=== PATIENT | female | born 1980 | race Caucasian/White ===

== ENCOUNTER 2021-11-17 17:07 | Observation (INO) ==
--- NOTE | 2021-11-17 18:14 | Emergency Department Note ---
Abdominal Pain HPI General Chief Complaint: Abdominal Pain Stated Complaint: abd pain Time Seen by Provider: 11/17/21 17:08 Source: patient Mode of arrival: ambulatory Limitations: no limitations History of Present Illness HPI Narrative: Narrative: 41-year-old female with a history of gastric ulcer, urinary retention and constipation presents the ER to be evaluated for bright red blood per rectum intermittently for the past few weeks and lower abdominal pain. She states she does not believe she could be . She said every time she makes a bowel movement she has had intermittent blood in the toilet for the past several weeks. She denies lightheadedness, syncope, fever, chills, body aches, nausea, vomiting or abdominal distention. She has had a previous gastric ulcer before. She has been taking super sulfate she had leftover from that but it has not been helping. She denies taking NSAIDs. She has no other complaints at this time. Related Data Previous Rx's Medication Instructions Recorded sucralfate 1 gram tablet (Carafate) 1 g PO QID #40 tabs 04/29/20 diazepam 5 mg tablet (Valium) 5 mg PO BID PRN spasm pain #6 tabs 07/03/21 naproxen 500 mg tablet 500 mg PO BID #14 tabs 07/03/21 sucralfate 1 gram tablet (Carafate) 1 g PO QID #40 tabs 07/03/21 Allergies Allergy/AdvReac Type Severity Reaction Status Date / Time Sulfa (Sulfonamide Allergy Mild RASH AND Verified 11/17/21 17:30 Antibiotics) HIVES [SULFA (SULFONAMIDE ANTIBIOTICS)] Review of Systems ROS ROS Narrative: Narrative: All systems ED: reviewed and negative except as stated. PFSH Narrative Patient History Narrative: Narrative: Medical/Surgical/Family History All Active Problems Urinary retention (Acute) Constipation (Acute) Gastroesophageal reflux disease (Acute) Acute whiplash injury (Acute) Cervical strain (Acute) Intussusception of rectum (Acute) Medical History Constipation Urinary retention Exam Narrative Narrative: Narrative: Gen: No acute distress Eyes: PERRL, no conjunctival injection , and symmetrical lids. Sclerae non icteric HENMT: Normocephalic Atraumatic head, external nose and ears. Moist MM. CVS: +S1/S2, No murmurs or gallops. Radial pulses 2+ and equal bilat. No swelling RESP: Unlabored respiratory effort . Clear to auscultation bilaterally (CTAB). No noted wheezes rales or ronchi. GI: Upper quadrants are soft and nontender, mild tenderness over the lower quadrants without rigidity, rebound tenderness or guarding Rectal: Small external hemorrhoid, no external bleeding or abnormality otherwise, no bright red blood in the rectal vault, Hemoccult positive Skin: Warm, Dry . No rashes or lesions . Cap refill less than 2. Psych: Awake, Alert, & Oriented (AAO) x3. Appropriate mood and affect . General Limitations: no limitations Course Vital Signs Vital signs: Vital Signs Temperature 37.5 C H 11/17/21 17:28 Pulse Rate 82 11/17/21 17:28 Respiratory Rate 16 11/17/21 17:28 Blood Pressure 138/89 11/17/21 17:28 Pulse Oximetry (%) 98 11/17/21 17:28 Oxygen Delivery Method 11/17/21 17:28 Temperature 37.1 C 11/17/21 22:10 Pulse Rate 82 11/17/21 22:10 Respiratory Rate 14 11/17/21 22:10 Blood Pressure 126/86 11/17/21 22:10 Pulse Oximetry (%) 96 11/17/21 22:10 Oxygen Delivery Method 11/17/21 22:10 [facility] MDM Narrative Medical decision making narrative: Narrative: Patient describes intermittent bright red blood per rectum with every bowel movement a past few weeks. She states she has had liquidy stools. She denies dark tarry stools, vomiting, fever, chills, body aches and is afebrile with normal vital signs at this time. She be evaluated with CBC, Chem-8, hepatic panel, lipase and hCG dip, ua. She will be evaluated CT scan of the abdomen pelvis. She is Hemoccult positive. CBC: Unremarkable Chem-8: Unremarkable Hepatic panel: Unremarkable Lipase: Normal hCG dip: Negative UA: No evidence of infection CT abdomen pelvis with contrast:IMPRESSION: 1. Findings consistent with distal sigmoid - rectal intussusception 2. No detectable mass on this examination. This should be evaluated for on follow-up studies 3. Findings consistent with benign hepatic cysts Dr. Garduno was consulted and agreed to come down evaluate the patient Dr. Garduno: Will admit the patient Lab Data Result diagrams: 11/17/21 18:02 Labs: Lab Results 11/17/21 11/17/21 11/17/21 Range/Units 18:02 18:15 18:28 WBC 9.2 (4.5-11.0) K/mcL RBC 4.47 (3.59-5.38) M/mcL Hgb 13.6 (11.2-15.7) g/dL Hct 41.2 (34.1-44.9) % POC Hct 41.0 (36-48) MCV 92.2 (80.0-100.0) fL MCH 30.4 (26.0-34.0) pg MCHC 33.0 (31.0-36.0) g/dL RDW 13.4 (11.5-14.5) % Plt Count 340 (140-440) K/mcL MPV 10.6 H (7.4-10.4) fL Immature Gran % (Auto) 0.2 (0.0-0.5) % Neut % (Auto) 66.0 (38.0-78.0) % Lymph % (Auto) 22.5 (15.5-49.0) % [place] % (Auto) 8.1 (1.0-12.0) % Eos % (Auto) 3.1 (0.0-7.0) % Baso % (Auto) 0.1 (0.0-2.0) % Lymph # (Auto) 2.08 (1.50-4.80) K/mcL [place] # (Auto) 0.75 (0.10-0.90) K/mcL Eos # (Auto) 0.29 (0.00-0.70) K/mcL Baso # (Auto) 0.01 (0.00-0.30) K/mcL Immature Gran # 0.02 (0.00-0.05) K/mcl Absolute Neutrophils 6.08 (1.80-8.00) K/mcL POC Sodium 138 (133-145) POC Potassium 3.5 (3.3-5.1) POC Chloride 105 (96-108) POC Total CO2 24.0 (22-30) POC BUN 7 (6-20) POC Creatinine 0.8 (0.6-1.2) POC Glucose 92 (70-105) POC WB Ioniz Calcium 1.00 L (1.16-1.32) Total Bilirubin 0.3 (0.1-1.0) mg/dL Direct Bilirubin < 0.2 (0-0.3) mg/dL AST 15 (<32) U/L ALT 13 (<40) U/L Alkaline Phosphatase 53 (39-117) U/L Total Protein 6.7 (5.9-8.4) gm/dL Albumin 4.0 (3.2-5.2) gm/dL Globulin 2.7 (2.2-3.7) gm/dL Lipase 19 (7-60) U/L ED POC Tests ED POC Tests: HCG POC Results Negative Discharge Plan Patient/Caregiver Discharge Instructions Pt seen by [facility]RIBUTOR/PA only: Yes Clinical Impression: Intussusception of rectum Patient Disposition: Xfer As Inpt ([facility]) Discharge Date/Time: 11/17/21 21:56 Discharge Location: [facility]
[2021-11-17 18:19] LABS: POC Creatinine 0.8 (0.6-1.2); POC Potassium 3.5 (3.3-5.1)
--- NOTE | 2021-11-17 18:51 | Cat Scan Report ---
INDICATION: Bright Red Blood per rectum/abdominal pain COMPARISON: None. TECHNIQUE: Axial images were obtained through the abdomen and pelvis. Sagittally and coronally reformatted images. 65 mL Isovue 370 injected intravenously. Oral contrast material was not administered FINDINGS: Lung bases:Negative. No pulmonary parenchymal nodule. No pleural fluid or pericardial fluid Liver:Negative. No focal solid intrahepatic mass. No focal abnormality. Liver contour is smooth. No evidence for cirrhosis there are 2 low density lesions within the liver. There is an 18 mm low-density abnormality in the left lobe. There is a 6 mm low-density lesion in the right lobe. These are probably benign cysts Gallbladder, bilary:No calcified gallstones. No gallbladder wall thickening. No dilated intra or extrahepatic bile ducts. Spleen:No splenomegaly. Normal enhancement of splenic and portal veins. Pancreas:No pancreatic mass. No peripancreatic abnormality Adrenal glands:Negative Kidneys,ureters,bladder:No solid renal mass. No hydronephrosis. No obstructing or nonobstructing calculi. No hydroureter. No ureteral calculus. No bladder stone. No detectable bladder mass. Gastrointestinal:Findings consistent with a distal sigmoid colon and rectal intussusception. Intussusceptum measures approximately 5 cm. A definite mass is not identified on this examination but should be considered with post reduction studies. Colon is otherwise negative. There is prominent fecal material within the ascending colon consistent with constipation Negative small bowel. No mechanical small bowel obstruction. No bowel wall thickening. No focal abnormality. Negative stomach and duodenum. No focal abnormality. Appendix: The appendix is negative Vascular:Negative abdominal aorta. Superior mesenteric artery and celiac trunk are normal. Normal opacification of the inferior mesenteric artery Lymphatic:No retroperitoneal or mesenteric adenopathy Mesentery, peritoneum: No free intraperitoneal fluid. No mesenteric or retroperitoneal mass. No intra-abdominal abscess. Reproductive:Uterus is anteflexed. There is an intrauterine contraceptive device present. No adnexal mass Musculoskeletal:No lumbar compression fractures. There is degenerative disc narrowing at L5-S1. Sacrum and pelvis are negative. No hip fracture. No abdominal wall or inguinal hernia IMPRESSION: 1. Findings consistent with distal sigmoid - rectal intussusception 2. No detectable mass on this examination. This should be evaluated for on follow-up studies 3. Findings consistent with benign hepatic cysts The exam was performed using radiation dose optimization techniques including, but not limited to, automated exposure control, adjustment of the mA and/or kV according to patient size and use of iterative reconstruction technique. Interpreted and Authenticated by: Vinicio Blair 11/17/21
[2021-11-17 19:00] LABS: Basophils # (Auto) 0.01 K/mcL (0.00-0.30); Basophils % (Auto) 0.1 % (0.0-2.0); Eosinophils # (Auto) 0.29 K/mcL (0.00-0.70); Eosinophils % (Auto) 3.1 % (0.0-7.0); Hematocrit 41.2 % (34.1-44.9); Hemoglobin 13.6 g/dL (11.2-15.7); Lymphocytes # (Auto) 2.08 K/mcL (1.50-4.80); Lymphocytes % (Auto) 22.5 % (15.5-49.0); Mean Cell Volume 92.2 fL (80.0-100.0); Mean Platelet Volume 10.6 fL (7.4-10.4); Monocytes # (Auto) 0.75 K/mcL (0.10-0.90); Monocytes % (Auto) 8.1 % (1.0-12.0); Platelet Count 340 K/mcL (140-440); RBC 4.47 M/mcL (3.59-5.38); Red Cell Distribution Width 13.4 % (11.5-14.5); WBC 9.2 K/mcL (4.5-11.0)
[2021-11-17 19:26] LABS: ALT/SGPT 13 U/L (<40); AST/SGOT 15 U/L (<32); Alkaline Phosphatase 53 U/L (39-117); Bilirubin,Direct < 0.2 mg/dL (0-0.3); Bilirubin,Total 0.3 mg/dL (0.1-1.0); Globulin 2.7 gm/dL (2.2-3.7)
--- NOTE | 2021-11-17 20:10 | General Surg History&Physical ---
HPI History of Present Illness Patient information: Note initiated : 11/17/21 at 8:07 pm Service Date, if different from initiated Date: [] Patient: Jeanine Tillman a 41 y/o F admitted on for abd pain. Chief Complaint: [] Chief complaint: Abdominal pain History of present illness: Ms. Tillman is a 41 year old F who presents with 2 to 3-week history of intermittent crampy lower abdominal pain with intermittent blood per rectum. Patient admitted to the emergency room where work-up with CT scan is consistent with sigmoid rectal intussusception. There is no obvious lead point, she has no other significant pathology. She has a normal white count and normal H&H. She denies any fevers chills nausea or vomiting. Her only complaints were intermittent crampy abdominal pain. Review of Systems Review of systems: All systems are reviewed, negative other than above PFSH PFSH All Active Problems Urinary retention (Acute) Constipation (Acute) Gastroesophageal reflux disease (Acute) Acute whiplash injury (Acute) Cervical strain (Acute) Intussusception of rectum (Acute) Medical History Constipation Urinary retention MEDS/ALLERGIES Home Medications and Allergies Home Medications Medication Instructions Recorded Confirmed Type sucralfate 1 gram tablet (Carafate) 1 g PO QID #40 tabs 04/29/20 Rx diazepam 5 mg tablet (Valium) 5 mg PO BID PRN spasm pain #6 tabs 07/03/21 Rx naproxen 500 mg tablet 500 mg PO BID #14 tabs 07/03/21 Rx sucralfate 1 gram tablet (Carafate) 1 g PO QID #40 tabs 07/03/21 Rx Allergies Allergy/AdvReac Type Severity Reaction Status Date / Time Sulfa (Sulfonamide Allergy Mild RASH AND Verified 11/17/21 17:30 Antibiotics) HIVES [SULFA (SULFONAMIDE ANTIBIOTICS)] Physical Examination Vital Signs Vital signs: Temp Pulse Resp BP Pulse Ox O2 Del Method 99.5 F H 96 H 16 126/82 94 11/17/21 17:28 11/17/21 18:22 11/17/21 17:28 11/17/21 18:16 11/17/21 18:11/17/21 17:28 General physical appearance General physical exam: well developed, well nourished and no distress Eyes Eye exam: PERRL and normal ocular movement ENT ENT exam: normal pinna, normal nares, normal mucosa, no hearing loss and no congestion Head Head exam IM: Present atraumatic and normocephalic Neck Neck exam: no masses, no bruits, trachea midline, no lymphadenopathy and no venous distension Cardiovascular Cardiovascular exam IM: Present normal rate and rhythm Respiratory Respiratory exam: normal expansion, normal respiratory effort, clear to percussion and clear to auscultation Abdomen Abdomen: Present soft, non tender and bowel sounds Hernia: Present none Genitourinary Genitourinary (Female): Present normal external genitalia Rectum Rectum: Present normal sphincter tone, no hemorrhoids, no tenderness, no masses and no bleeding Integumentary Integumentary: Present no rash, no growths and no abnormal pigmentation Neurologic Neurologic: Present normal coordination and normal sensation Musculoskeletal Musculoskeletal: Present normal gait and normal posture Psychiatric Psychiatric: Present oriented to time, oriented to person, oriented to place, speech is normal and memory intact Results Labs Result diagrams: 11/17/21 18:02 Labs: Abnormal lab results 11/17/21 11/17/21 Range/Units 18:02 18:15 MPV 10.6 H (7.4-10.4) fL POC WB Ioniz Calcium 1.00 L (1.16-1.32) Diabetes panel 11/17/21 Range/Units 18:28 AST 15 (<32) U/L ALT 13 (<40) U/L Alkaline Phosphatase 53 (39-117) U/L Total Protein 6.7 (5.9-8.4) gm/dL Albumin 4.0 (3.2-5.2) gm/dL Calcium panel 11/17/21 Range/Units 18:28 Albumin 4.0 (3.2-5.2) gm/dL Adrenal panel 11/17/21 Range/Units 18:28 Total Bilirubin 0.3 (0.1-1.0) mg/dL AST 15 (<32) U/L ALT 13 (<40) U/L Alkaline Phosphatase 53 (39-117) U/L Total Protein 6.7 (5.9-8.4) gm/dL Albumin 4.0 (3.2-5.2) gm/dL All other labs normal. Imaging CT scan - abdomen: image reviewed A/P Assessment and plan (1) Intussusception of rectum: Plan: This is a pleasant 41-year-old female who presents with crampy abdominal pain with CT scan most consistent with a sigmoid rectal intussusception. Long discussion with patient about treatment options including surgical intervention for a sigmoid resection versus more conservative management with a barium enema to attempt reduction followed by colonoscope. She verbalizes understanding, all of her questions are answered. She desires more conservative intervention. We discussed at length inpatient versus outpatient work-up. Given her crampy abdominal pain, and bleeding per rectum I feel that admission is warranted with immediate work-up to prevent colonic ischemia. Plan: Admit, n.p.o. after midnight. Barium enema in the morning to try to reduce the intussusception, based on the results of that study we will discuss further colonoscopy versus operative intervention. Status: Acute Time Spent With Patient Time: Total time spent is greater than 50% in coordination of care (as documented) at patient's floor/unit and/or counseling patient:
[2021-11-17] MEDS: HYDROmorphone 0.5 MG/0.5 ML SYRINGE IV PRN (20:56)
[2021-11-17] MEDS ORDERED: ACETAMINOPHEN 1,000 MG/100 ML BAG IV ONE (21:01)
[2021-11-17] MEDS ORDERED: DIATRIZOATE MEGLU/DIATRIZO SOD 120 ML BOTTLE PO ONE (21:51)
[2021-11-17] MEDS: LACTATED RINGERS 1,000 ML IV SCH (22:27)
[2021-11-17] MEDS: 0.9 % SODIUM CHLORIDE 10 ML SYRINGE IV SCH (23:21)
[2021-11-18] MEDS: HYDROmorphone 0.5 MG/0.5 ML SYRINGE IV PRN ×5 (03:40→22:10)
[2021-11-18] MEDS: ONDANSETRON 4 MG/2 ML VIAL IV PRN ×4 (03:40→22:10)
[2021-11-18] MEDS: 0.9 % SODIUM CHLORIDE 10 ML SYRINGE IV SCH ×3 (04:54→22:30)
[2021-11-18] MEDS: LACTATED RINGERS 1,000 ML IV SCH ×5 (05:19→23:43)
[2021-11-18] MEDS ORDERED: LORazepam 2 MG/ML VIAL IV ONE (07:12)
--- NOTE | 2021-11-18 09:06 | XRay Report ---
INDICATION: sigmoid-rectal intussuception TECHNIQUE: Enema performed with water-soluble contrast material. COMPARISON: Previous CT scan dated 11/17/2021 FINDINGS: Contrast material initially passes to approximately the rectosigmoid junction. This is a level of obstruction consistent with intussusception. [place] was used and more contrast material was injected. The obstruction gradually released consistent with reduction of intussusception. Contrast material then passed readily into the transverse colon. There is an intraluminal, mucosal mass. This is in the distal sigmoid colon. This measures approximately 4 cm in diameter. Appearance is consistent with primary colonic malignancy. Surgical endoscopic evaluation and biopsy are recommended. IMPRESSION: 1. Distal sigmoid intussusception 2. Hydrostatic reduction of intussusception with resolution of retrograde obstruction 3. 4 cm mucosal mass in the distal sigmoid colon suspicious for neoplasm. Interpreted and Authenticated by: Vinicio Blair 11/18/21
--- NOTE | 2021-11-18 13:00 | General Surgery Progress Note ---
SUBJECTIVE Subjective Patient information: Note initiated : 11/18/21 at 12:58 pm Service Date, if different from initiated Date: [] Patient: Jeanine Tillman 41 y/o F admitted on 11/17/21 for abd pain. Chief Complaint: [] Interval history: Patient admitted overnight with sigmoid rectal intussusception, underwent barium enema today which was successful at reducing the intussusception and also significant for 3 to 4 cm sigmoid mass. Patient has no other complaints. Constitutional Vitals: Vital Signs Temp Pulse Resp BP Pulse Ox O2 Del Method 97.8 F 96 H 12 127/73 92 11/18/21 12:00 11/18/21 12:00 11/18/21 12:00 11/18/21 12:00 11/18/21 12:00 11/18/21 12:00 Period Temp Pulse Resp BP Sys/[place] Pulse Ox O2 Del Method O2 Flow Rate Last 24 Hr 96.9 F-99.5 F 67-96 12-16 99-144/64-99 92-99 Room Air-Room Air Intake and Output 11/17/21 11/18/21 11/18/21 21:59 05:59 13:59 Intake Total 57 200 948 Balance 57 200 948 Weight 141 lb 3.2 oz 141 lb 5 oz Intake & Output: Intake & Output 11/17/21 11/18/21 11/18/21 21:59 05:59 13:59 Intake Total 57 200 948 Balance 57 200 948 Weight 141 lb 3.2 oz 141 lb 5 oz Intake: IV 57 948 Lactated Ringers 1,000 ml @ 125 948 mls/hr IV .Q8H [facility] Rx#: [id number] Oral 200 Other: # Voids 1 General appearance: no acute distress GI/Abdominal GI/Abdominal exam: Present soft; Absent distended, rebound or tenderness A/P Assessment and plan (1) Intussusception of rectum: Plan: Pleasant 41-year-old female scented with colonic intussusception, barium enema reduced the intussusception but is suspicious for 3 to 4 cm sigmoid mass. Long discussion with patient today about work-up, need for colonoscopy tomorrow to identify mass and take biopsies to plan further treatment if necessary. She verbalizes understanding. Plan: Clear liquid diet for now, start GoLytely prep tonight at 1600, colonoscopy tomorrow morning at 630. Status: Acute Time Spent With Patient Time: Total time spent is greater than 50% in coordination of care (as documented) at patient's floor/unit and/or counseling patient:
[2021-11-18] MEDS ORDERED: PEG 3350/NA SULF,BICARB,CL/KCL 4,000 ML ORAL.SOL PO ONE (16:00)
[2021-11-19] MEDS: HYDROmorphone 0.5 MG/0.5 ML SYRINGE IV PRN ×3 (03:04→07:49)
[2021-11-19] MEDS: ONDANSETRON 4 MG/2 ML VIAL IV PRN (05:22)
[2021-11-19] MEDS ORDERED: PROPOFOL 200 MG/20 ML VIAL IV SCH (06:30)
[2021-11-19] MEDS ORDERED: MIDAZOLAM 2 MG/2 ML VIAL IV SCH (06:30)
--- NOTE | 2021-11-19 07:08 | Colonoscopy Procedure Note ---
Colonoscopy Procedure Notes Procedure Information Patient information: Note initiated : 11/19/21 at 7:05 am Patient: Jeanine Tillman 41 y/o F admitted on 11/17/21 for abd pain. Date of Procedure: 11/19/21 Pre-op diagnosis general: Colonic intussusception, sigmoid mass on barium enema Post-op diagnosis: Same Procedure: Colonoscopy with Bx Procedure narrative: After risk benefits and alternatives to the procedure were discussed with the patient at length she verbalized understanding and desire to continue with the procedure. Patient was taken to endoscopy and placed supine on the endoscopy table. Conscious sedation was administered throughout the case consisting of 2 mg of Versed and 300 mcg of propofol. Digital rectal exam was performed which was within normal limits. An adult colonoscope was advanced under direct vision to the cecum which was identified by the [place], the appendiceal orifice and opening to the terminal ileum. Full exam upon removal of scope was significant for a large polypoid mass approximately 3 cm in length occupying approximately half of the lumen at 25 cm and the distal sigmoid colon. Multiple cold forcep biopsies were done for pathology. Ink was placed just distal to the mass. Withdraw time was >8 min. Retroflexion in the rectum was within normal limits. EBL: Minimal Findings: Polypoid appearing mass in the sigmoid colon, too large for endoscopic resection. Biopsies done for pathology Complications: none Surgeon: Toan Garduno Specimens Removed/Pathology: other (Multiple biopsies of sigmoid mass) Disposition: floor Assessment: Sigmoid mass. Follow-up with me in 1 week for pathology results. Image Colon: 1. Large polypoid mass in the sigmoid colon.
[2021-11-19] MEDS: 0.9 % SODIUM CHLORIDE 10 ML SYRINGE IV SCH (08:50)
[2021-11-19] MEDS: LACTATED RINGERS 1,000 ML IV SCH (08:54)
--- NOTE | 2021-11-19 09:11 | Discharge Summary ---
Discharge Provider Provider IMPORTANT FOLLOW-UP INFORMATION FOR PCP: Patient information: Note initiated : 11/19/21 at 9:10 am Service Date, if different from initiated Date: [] Patient: Jeanine Tillman 41 y/o F admitted on 11/17/21 for abd pain. Chief Complaint: [] Date of admission: 11/17/21 21:50 Discharge date: 11/19/21 Primary care physician: PCP No Consults: 11/17/21 Consult to Physician [CONS] Stat Comment: Consulting Provider: Toan Garduno Reason For Exam: Physician to Consult COURSE Hospital Course Hospital course: Patient was admitted with a sigmoid rectal intussusception, this was reduced on barium enema and a sigmoid lesion was identified. Patient underwent a colonoscopy which identified a partially obstructing sigmoid lesion, multiple biopsies were done. Patient will need to follow-up with me next week to discuss biopsy results and plan surgical intervention. Discharge diagnosis: Colonic intussusception Time Spent with Patient Time attestation: Total time spent providing and/or coordinating discharge services: Time spent: Less than 30 minutes Physical Examination Vital Signs Vital signs: Temp Pulse Resp BP Pulse Ox O2 Del Method O2 Flow Rate 99.1 F H 73 18 103/67 90 0 11/19/21 08:00 11/19/21 08:00 11/19/21 08:00 11/19/21 08:00 11/19/21 08:00 11/19/21 07:15 11/18/21 19:35 Discharge Plan Patient/Caregiver Discharge Instructions Activity: increase activity as tolerated Diet: Regular Diet Activity Restrictions/Additional Instructions: Follow-up with me 1 week. Diet and activity as tolerated Prescriptions: No Action No Known Home Meds Follow Up Plan Follow up with: Toan Garduno MD [Physician] - No,PCP [Primary Care Provider] - Patient Disposition: Home, Self-Care Discharge Orders: Discharge Order (Routine); Ordered 11/19/21 Ordered By: Toan Garduno Pending Pending Pending: Resuscitation Status Resuscitate (Full Code) Diet Regular Diet Start MonNov 19 0739 Hydromorphone HCl (Hydromorphone 0.5 Mg/0.5 Ml Syringe) 0.5 mg IV Q2HP PRN; Protocol PRN Reason: Per Pain Protocol Last Admin: 11/19/21 07:49 Dose: 0.5 mg Documented By: Admin: 11/19/21 05:22 Dose: 0.5 mg Documented By: Admin: 11/19/21 03:04 Dose: 0.5 mg Documented By: Admin: 11/18/21 22:10 Dose: 0.5 mg Documented By: Admin: 11/18/21 19:38 Dose: 0.5 mg Documented By: Admin: 11/18/21 15:27 Dose: 0.5 mg Documented By: Admin: 11/18/21 09:11 Dose: 0.5 mg Documented By: Admin: 11/18/21 03:40 Dose: 0.5 mg Documented By: MELISSA Lactated Ringer's (Lactated Ringers) 1,000 mls @ 125 mls/hr IV .Q8H YURI Last Admin: 11/19/21 08:54 Dose: 125 mls/hr Documented By: Infusion: 11/19/21 08:20 Dose: 0 mls/hr Documented By: Admin: 11/18/21 23:43 Dose: 125 mls/hr Documented By: Infusion: 11/18/21 23:39 Dose: 125 mls/hr Documented By: Admin: 11/18/21 15:39 Dose: 125 mls/hr Documented By: Infusion: 11/18/21 14:02 Dose: 125 mls/hr Documented By: Admin: 11/18/21 12:53 Dose: Not Given Documented By: Admin: 11/18/21 06:02 Dose: 125 mls/hr Documented By: Infusion: 11/18/21 06:02 Dose: 125 mls/hr Documented By: Admin: 11/18/21 05:19 Dose: Not Given Documented By: Admin: 11/17/21 22:27 Dose: 125 mls/hr Documented By: MELISSA Midazolam HCl (Midazolam 2 Mg/2 Ml Vial) 0 mg IV ONCE YURI Stop: 11/19/21 14:20 Last Admin: 11/19/21 06:38 Dose: 2 mg Documented By: [email or web address] Ondansetron HCl (Ondansetron 4 Mg/2 Ml Vial) 4 mg IV Q6HP PRN PRN Reason: Nausea And Vomiting Last Admin: 11/19/21 05:22 Dose: 4 mg Documented By: [email or web address] Admin: 11/18/21 22:10 Dose: 4 mg Documented By: Admin: 11/18/21 15:28 Dose: 4 mg Documented By: Admin: 11/18/21 09:16 Dose: 4 mg Documented By: Admin: 11/18/21 03:40 Dose: 4 mg Documented By: MELISSA Propofol (Propofol 200 Mg/20 Ml Vial) 0 mg IV UD [facility] Stop: 11/19/21 14:20 Last Admin: 11/19/21 06:38 Dose: 300 mg Documented By: [email or web address] Sodium Chloride (0.9 % Sodium Chloride 10 Ml Syringe) 10 ml IV Q8 YURI Last Admin: 11/19/21 08:50 Dose: Not Given Documented By: Admin: 11/18/21 22:30 Dose: Not Given Documented By: Admin: 11/18/21 12:53 Dose: Not Given Documented By: Admin: 11/18/21 04:54 Dose: Not Given Documented By: Admin: 11/17/21 23:21 Dose: Not Given Documented By: MELISSA Shift Summary 11/19/21 04:27 Shift Summary by Netta [email or web address], up ad cassidy. NPO as of 00:00. Patient is suppose to get Colonoscopy at 06:30. No order as of 04:31. Completed Golytely at 23:55. Output still brown as of this writing Medicated with Dilaudid 0.5mg IV (Q2HP) at 19:38, 22:18, 03:04 (requests to take zofran with dilaudid when able) Medicated with Zofran 4mg IV (Q6HP) at 22:10 Turns self in bed Last BM 11/19 brown, liquid stool/urine mix Likes Ice water/lemon-saxman soda/newspaper 11/17 21:50 Admitted to [facility] OBS status with diagnosis: Intussusception Primo,Jeanine Hortensia Female : 1980 MedRec# [id number] 11/18/21 16:01 - Shift Summary by Aster Neri RN Acct Num: [id number] : 1980 Patient Age: 41 Primary Diagnosis: Lower abd pain, blood in stool Registration Status: Observation Date of Surgery (if applicable): Colonoscopy at 11/19 Pertinent Medical Dx/Issue(s): Gerd, urinary retention, constipation Med management (antibiotics, diuretics, BP): IV fluid, pain management, antiemetics, golytely Skin/Wound Care: N/A Vital Signs with Trends: VSS O2, liter flow/saturations: RA Pain management (acute vs. chronic): Dilaudid X2, Zofran X2 Lab/Rad (abnormals, trends): barium enema reduced intussusception, colonoscopy 11/19 for mass found Neuro/Mental Status: A&OX4 Cardiac Rhythm, Alarm Settings: N/A Urinary Elimination Device: Hat in bathroom Urinary output greater than 30mL/hr? Unmeasured urine, 550 ml measured Date of last BM: 11/18/21 Lines/Tubes: 20G R A/C , LR at 125ml/hr Activity: SBA due to IV pole Recommendations/questions for MD: Discharge Plan (needs, disposition, etc): TBD Initialized on 11/19/21 04:27 - END OF NOTE
[2021-11-19 09:37] LABS: Carcinoembryonic Antigen 1.8 ng/mL (<3.4)
== END 2021-11-19 11:55 | disposition home or self-care (01) ==
LOC: ED 17:07 → MEDSUR 17:07
PROVIDERS: ADMIT Surgery; ATTEND Surgery

== ENCOUNTER 2021-11-30 09:25 | Inpatient (IN) ==
[2021-11-30] MEDS ORDERED: DIATRIZOATE MEGLU/DIATRIZO SOD 120 ML BOTTLE PO ONE (09:26)
--- NOTE | 2021-11-30 09:43 | Emergency Department Note ---
HPI General Chief complaint: Abdominal Pain Stated complaint: abd. pain Time Seen by Provider: 11/30/21 09:34 Source: patient Mode of arrival: ambulatory Limitations: no limitations History of Present Illness HPI Narrative: Narrative: Patient is a 41-year-old female with recent findings of colonic mass who presents to the emergency department due to abdominal pain. She states that she recently had intussusception, and that at that time this was reduced. She states that they then found a colonic mass, and that Dr. Garduno plans to remove the mass in just over a week. She states that she had significant abdominal pain this morning, so called Dr. Garduno office. They recommended that she come to the emergency department. Dr. Garduno also asked for a call when she arrived to the emergency department. She states that the pain is mostly in the left lower quadrant, but that she does have some pain radiating across to the right. She states that it feels like when she had the intussusception. She denies any other significant concerns. Related Data Home Medications Medication Instructions Recorded Confirmed No Known Home Meds 11/18/21 11/30/21 Allergies Allergy/AdvReac Type Severity Reaction Status Date / Time Sulfa (Sulfonamide Allergy Mild RASH AND Verified 11/22/21 15:35 Antibiotics) HIVES [SULFA (SULFONAMIDE ANTIBIOTICS)] Review of Systems ROS ROS Narrative: Narrative: Constitutional: Denies fever or weakness Eyes: Denies eye pain or vision change ENT ED: Denies throat pain, hearing loss or rhinorrhea Cardiovascular: Denies chest pain, dyspnea on exertion, orthopnea or edema Respiratory: Denies shortness of breath or cough Gastrointestinal: Reports abdominal pain and constipation; Denies nausea, vomiting, diarrhea, hematochezia or melena Musculoskeletal: Denies back pain or myalgia Integumentary: Denies rash or lesions Neurological: Denies headache, weakness, numbness, confusion, abnormal gait or dizziness Psychiatric: Reports as per HPI; Denies anxiety [facility] Narrative Patient History Narrative: Narrative: Medical/Surgical/Family History All Active Problems (Updated 12/01/21 @ 08:50 by Rosalino Gates MD) Abdominal pain (Acute) Colonic mass (Acute) Urinary retention (Acute) Constipation (Acute) Gastroesophageal reflux disease (Acute) Acute whiplash injury (Acute) Cervical strain (Acute) Intussusception of rectum (Acute) Medical History Constipation Urinary retention Surgical History History of colonoscopy 11/19/2021 Family History Grandfather Colon cancer Heart disease Social History Smoking Status: Current every day smoker Alcohol Intake Frequency: holiday/special occasion only Exam Narrative Narrative: Narrative: General Limitations: no limitations General appearance: Present alert and in no apparent distress; Absent anxious or appears intoxicated Head Head: Present atraumatic and normocephalic Eye Eye: Present PERRL and EOMI; Absent scleral icterus or nystagmus ENT ENT: Present mucous membranes moist; Absent nasal congestion Neck Neck: Present full ROM; Absent tenderness Chest Chest: Present normal inspection and symmetric chest wall rise Respiratory Respiratory: Present normal lung sounds bilaterally; Absent respiratory distress or accessory muscle use Cardiovascular Cardiovascular: Present regular rate, normal rhythm and normal heart sounds Adbominal Abdominal: Present soft, tenderness and normal bowel sounds; Absent distention Extremities Extremities: Present normal inspection and full ROM Back Back: Present normal inspection and full ROM Neurological Neurological: Present alert and oriented X3 Psychiatric Psychiatric: Present normal affect and normal mood Skin Skin: Present warm (WNL), dry and normal color Course Vital Signs Vital signs: Vital Signs Temperature 99.0 F 11/30/21 09:27 Pulse Rate 82 11/30/21 09:27 Respiratory Rate 18 11/30/21 09:27 Blood Pressure 129/78 11/30/21 09:27 Pulse Oximetry (%) 100 11/30/21 09:27 Oxygen Delivery Method 11/30/21 09:27 Temperature 98.1 F 12/01/21 08:00 Pulse Rate 81 12/01/21 08:00 Respiratory Rate 18 12/01/21 08:00 Blood Pressure 108/66 12/01/21 08:00 Pulse Oximetry (%) 95 12/01/21 08:00 Oxygen Delivery Method 12/01/21 08:00 [facility] MDM Narrative Medical decision making narrative: Narrative: Patient is a 41-year-old female who presents to the emergency department due to abdominal pain. Blood work has been obtained. Immediately after arrival and evaluation the patient I spoke to Dr. Garduno. He did not recommend any other studies aside from the blood work. He stated that he would be down soon to evaluate patient. Patient has been evaluated by Dr. Garduno. He plans to admit patient and to move up her surgical procedure. Lab Data Result diagrams: 12/01/21 05:35 12/01/21 05:35 Labs: Lab Results 11/30/21 11/30/21 11/30/21 Range/Units 09:43 10:17 10:17 WBC 9.7 (4.5-11.0) K/mcL RBC 4.76 (3.59-5.38) M/mcL Hgb 14.8 (11.2-15.7) g/dL Hct 43.7 (34.1-44.9) % MCV 91.8 (80.0-100.0) fL MCH 31.1 (26.0-34.0) pg MCHC 33.9 (31.0-36.0) g/dL RDW 13.5 (11.5-14.5) % Plt Count 335 (140-440) K/mcL MPV 11.0 H (7.4-10.4) fL Immature Gran % (Auto) 0.3 (0.0-0.5) % Neut % (Auto) 75.1 (38.0-78.0) % Lymph % (Auto) 13.7 L (15.5-49.0) % [place] % (Auto) 9.2 (1.0-12.0) % Eos % (Auto) 1.5 (0.0-7.0) % Baso % (Auto) 0.2 (0.0-2.0) % Lymph # (Auto) 1.33 L (1.50-4.80) K/mcL [place] # (Auto) 0.89 (0.10-0.90) K/mcL Eos # (Auto) 0.15 (0.00-0.70) K/mcL Baso # (Auto) 0.02 (0.00-0.30) K/mcL Immature Gran # 0.03 (0.00-0.05) K/mcl Absolute Neutrophils 7.30 (1.80-8.00) K/mcL PT 12.9 (11.9-14.5) sec INR 0.9 (0.9-1.1) APTT 33.6 (20.0-37.0) sec Sodium 135 (133-145) mmol/L Potassium 3.8 (3.3-5.1) mmol/L Chloride 102 (96-108) mmol/L Carbon Dioxide 24 (22-30) mmol/L Anion Gap 9.0 (8.0-16.0) BUN 7 (6-20) mg/dL Creatinine 0.7 (0.6-1.1) mg/dL GFR Calculation 109 Glucose 87 (70-105) mg/dL Calcium 9.1 (8.6-10.4) mg/dL Total Bilirubin 0.3 (0.1-1.0) mg/dL AST 14 (<32) U/L ALT 13 (<40) U/L Alkaline Phosphatase 57 (39-117) U/L Total Protein 7.2 (5.9-8.4) gm/dL Albumin 4.3 (3.2-5.2) gm/dL Globulin 2.9 (2.2-3.7) gm/dL Albumin/Globulin Ratio 1.5 (1.0-2.3) EKG Data EKG #1: EKG attestation: Yes I reviewed and interpreted this EKG. EKG results narrative: Normal sinus rhythm with a rate of 80, normal axis, AR of 176, QRS of 82, QTc of 434, T wave flattening in lead aVL, and absence of ST elevation or depression. Discharge Plan Patient/Caregiver Discharge Instructions Pt seen by FORGING MACHINE HAND/PA only: No Clinical Impression: Abdominal pain Patient Disposition: Xfer As Inpt ([facility]) Discharge Date/Time: 11/30/21 12:03
[2021-11-30] MEDS ORDERED: LORazepam 1 MG TABLET PO ONE (10:24)
[2021-11-30] MEDS ORDERED: ACETAMINOPHEN 325 MG TABLET PO ONE (10:24)
--- NOTE | 2021-11-30 11:45 | XRay Report ---
HISTORY: Tumor in the sigmoid colon causing intussusception FINDINGS: Balloon tipped catheter was inserted in the rectum. Diluted Gastrografin contrast was injected under fluoroscopic guidance. There is an irregularly shaped tumor in the mid sigmoid colon causing a blockage. With additional fluid inserted, the blockage was partially relieved and contrast flowed beyond the tumor into the distal descending colon. The intussusception is a recurrent finding which was also documented on 11/18/21. One minute eight seconds of fluoroscopy time was used. 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
[2021-11-30 11:50] LABS: Basophils # (Auto) 0.02 K/mcL (0.00-0.30); Basophils % (Auto) 0.2 % (0.0-2.0); Eosinophils # (Auto) 0.15 K/mcL (0.00-0.70); Eosinophils % (Auto) 1.5 % (0.0-7.0); Hematocrit 43.7 % (34.1-44.9); Hemoglobin 14.8 g/dL (11.2-15.7); Lymphocytes # (Auto) 1.33 K/mcL (1.50-4.80); Lymphocytes % (Auto) 13.7 % (15.5-49.0); Mean Cell Volume 91.8 fL (80.0-100.0); Mean Corpuscular HGB Conc 33.9 g/dL (31.0-36.0); Monocytes # (Auto) 0.89 K/mcL (0.10-0.90); Monocytes % (Auto) 9.2 % (1.0-12.0); Neutrophils % (Auto) 75.1 % (38.0-78.0); Platelet Count 335 K/mcL (140-440); RBC 4.76 M/mcL (3.59-5.38); Red Cell Distribution Width 13.5 % (11.5-14.5); WBC 9.7 K/mcL (4.5-11.0)
[2021-11-30 11:51] LABS: INR 0.9 (0.9-1.1); Partial Thromboplastin Time 33.6 sec (20.0-37.0); Prothrombin Time 12.9 sec (11.9-14.5)
[2021-11-30 11:59] LABS: ALT/SGPT 13 U/L (<40); AST/SGOT 14 U/L (<32); Albumin 4.3 gm/dL (3.2-5.2); Albumin/Globulin Ratio 1.5 (1.0-2.3); Alkaline Phosphatase 57 U/L (39-117); Bilirubin,Total 0.3 mg/dL (0.1-1.0); Blood Urea Nitrogen 7 mg/dL (6-20); Calcium 9.1 mg/dL (8.6-10.4); Carbon Dioxide 24 mmol/L (22-30); Chloride 102 mmol/L (96-108); Globulin 2.9 gm/dL (2.2-3.7); Glomerular Filtration Rate 109; Glucose 87 mg/dL (70-105)
--- NOTE | 2021-11-30 17:06 | General Surg History&Physical ---
HPI History of Present Illness Patient information: Note initiated : 11/30/21 at 5:04 pm Service Date, if different from initiated Date: [] Patient: Jeanine Tillman a 41 y/o F admitted on 11/30/21 for abd. pain. Chief Complaint: [] History of present illness: Ms. Tillman is a 41 year old F known to me from prior hospitalization. Patient presented approximately 2 weeks ago with colonic intussusception, work-up was significant for a colonic mass. Intussusception had been reduced therefore patient chose outpatient elective treatment. Yesterday Patient started to have and repeat abdominal pain, and intermittent blood per rectum. She represents to the emergency room for continued management. Review of Systems All systems: reviewed and no additional remarkable complaints except as stated PFSH PFSH All Active Problems Colonic mass (Acute) Urinary retention (Acute) Constipation (Acute) Gastroesophageal reflux disease (Acute) Acute whiplash injury (Acute) Cervical strain (Acute) Intussusception of rectum (Acute) Medical History Constipation Urinary retention Surgical History History of colonoscopy 11/19/2021 Family History Grandfather Colon cancer Heart disease Social History smoking status: Current every day smoker quit status: considering quitting alcohol intake frequency: holiday/special occasion only MEDS/ALLERGIES Home Medications and Allergies Home Medications Medication Instructions Recorded Confirmed Type No Known Home Meds 11/18/21 11/30/21 History Allergies Allergy/AdvReac Type Severity Reaction Status Date / Time Sulfa (Sulfonamide Allergy Mild RASH AND Verified 11/22/21 15:35 Antibiotics) HIVES [SULFA (SULFONAMIDE ANTIBIOTICS)] Physical Examination Vital Signs Vital signs: Temp Pulse Resp BP Pulse Ox O2 Del Method 97.4 F 71 20 102/64 96 11/30/21 16:00 11/30/21 16:00 11/30/21 16:00 11/30/21 16:00 11/30/21 16:00 11/30/21 16:00 General physical appearance General physical exam: well developed, well nourished and no distress Eyes Eye exam: PERRL and normal ocular movement ENT ENT exam: normal pinna, normal nares, normal mucosa, no hearing loss and no congestion Head Head exam IM: Present atraumatic and normocephalic Neck Neck exam: no masses, no bruits, trachea midline, no lymphadenopathy and no v enous distension Cardiovascular Cardiovascular exam IM: Present normal rate and rhythm Respiratory Respiratory exam: normal expansion, normal respiratory effort, clear to percussion and clear to auscultation Abdomen Abdomen: Present soft, non tender and bowel sounds Hernia: Present none Genitourinary Genitourinary (Female): Present normal external genitalia Rectum Rectum: Present normal sphincter tone, no hemorrhoids, no tenderness, no masses and no bleeding Integumentary Integumentary: Present no rash, no growths and no abnormal pigmentation Neurologic Neurologic: Present normal coordination and normal sensation Musculoskeletal Musculoskeletal: Present normal gait and normal posture Psychiatric Psychiatric: Present oriented to time, oriented to person, oriented to place, speech is normal and memory intact Results Labs Result diagrams: 11/30/21 10:17 11/30/21 10:17 Labs: Abnormal lab results 11/30/21 Range/Units 10:17 MPV 11.0 H (7.4-10.4) fL Lymph % (Auto) 13.7 L (15.5-49.0) % Lymph # (Auto) 1.33 L (1.50-4.80) K/mcL Diabetes panel 11/30/21 Range/Units 10:17 Sodium 135 (133-145) mmol/L Potassium 3.8 (3.3-5.1) mmol/L Chloride 102 (96-108) mmol/L Carbon Dioxide 24 (22-30) mmol/L BUN 7 (6-20) mg/dL Creatinine 0.7 (0.6-1.1) mg/dL Glucose 87 (70-105) mg/dL Calcium 9.1 (8.6-10.4) mg/dL AST 14 (<32) U/L ALT 13 (<40) U/L Alkaline Phosphatase 57 (39-117) U/L Total Protein 7.2 (5.9-8.4) gm/dL Albumin 4.3 (3.2-5.2) gm/dL Calcium panel 11/30/21 Range/Units 10:17 Calcium 9.1 (8.6-10.4) mg/dL Albumin 4.3 (3.2-5.2) gm/dL Pituitary panel 11/30/21 Range/Units 10:17 Sodium 135 (133-145) mmol/L Potassium 3.8 (3.3-5.1) mmol/L Chloride 102 (96-108) mmol/L Carbon Dioxide 24 (22-30) mmol/L BUN 7 (6-20) mg/dL Creatinine 0.7 (0.6-1.1) mg/dL Glucose 87 (70-105) mg/dL Calcium 9.1 (8.6-10.4) mg/dL Adrenal panel 11/30/21 Range/Units 10:17 Sodium 135 (133-145) mmol/L Potassium 3.8 (3.3-5.1) mmol/L Chloride 102 (96-108) mmol/L Carbon Dioxide 24 (22-30) mmol/L BUN 7 (6-20) mg/dL Creatinine 0.7 (0.6-1.1) mg/dL Glucose 87 (70-105) mg/dL Calcium 9.1 (8.6-10.4) mg/dL Total Bilirubin 0.3 (0.1-1.0) mg/dL AST 14 (<32) U/L ALT 13 (<40) U/L Alkaline Phosphatase 57 (39-117) U/L Total Protein 7.2 (5.9-8.4) gm/dL Albumin 4.3 (3.2-5.2) gm/dL All other labs normal. A/P Assessment and plan (1) Colonic mass: Plan: Risk, benefits, alternatives to treatment discussed with her at length including details of the procedure and what to expect. She verbalizes understanding, all of her questions are answered and she desires to continue. Plan: Admit to hospital, continue with clear liquid diet today. N.p.o. after midnight for planned robotic sigmoid colectomy tomorrow. Status: Acute Time Spent With Patient Time: Total time spent is greater than 50% in coordination of care (as documented) at patient's floor/unit and/or counseling patient:
[2021-11-30] MEDS: HYDROmorphone 0.5 MG/0.5 ML SYRINGE IV PRN ×2 (17:51→20:49)
[2021-11-30] MEDS: ONDANSETRON 4 MG/2 ML VIAL IV PRN (17:53)
[2021-11-30] MEDS: 0.9 % SODIUM CHLORIDE 10 ML SYRINGE IV SCH ×2 (17:54→20:50)
[2021-11-30] MEDS: ACETAMINOPHEN 325 MG TABLET PO PRN (20:49)
[2021-11-30] MEDS ORDERED: ERTAPENEM 1 GM VIAL IM SCH (21:00)
[2021-12-01] MEDS: HYDROmorphone 0.5 MG/0.5 ML SYRINGE IV PRN ×7 (00:15→22:12)
[2021-12-01] MEDS ORDERED: METOCLOPRAMIDE 10 MG TABLET ONE (00:17)
[2021-12-01] MEDS: ONDANSETRON 4 MG/2 ML VIAL IV PRN ×3 (00:20→23:20)
[2021-12-01] MEDS: 0.9 % SODIUM CHLORIDE 10 ML SYRINGE IV SCH ×2 (05:34→17:42)
[2021-12-01 06:32] LABS: Basophils # (Auto) 0.01 K/mcL (0.00-0.30); Basophils % (Auto) 0.1 % (0.0-2.0); Eosinophils # (Auto) 0.17 K/mcL (0.00-0.70); Eosinophils % (Auto) 2.2 % (0.0-7.0); Hematocrit 42.3 % (34.1-44.9); Hemoglobin 13.8 g/dL (11.2-15.7); Lymphocytes # (Auto) 1.25 K/mcL (1.50-4.80); Mean Cell Volume 93.4 fL (80.0-100.0); Mean Corpuscular HGB Conc 32.6 g/dL (31.0-36.0); Mean Platelet Volume 10.7 fL (7.4-10.4); Monocytes # (Auto) 0.93 K/mcL (0.10-0.90); Monocytes % (Auto) 11.9 % (1.0-12.0); Neutrophils % (Auto) 69.4 % (38.0-78.0); Platelet Count 293 K/mcL (140-440); RBC 4.53 M/mcL (3.59-5.38); Red Cell Distribution Width 13.5 % (11.5-14.5); WBC 7.8 K/mcL (4.5-11.0)
[2021-12-01 06:56] LABS: Blood Urea Nitrogen 6 mg/dL (6-20); Calcium 8.4 mg/dL (8.6-10.4); Carbon Dioxide 27 mmol/L (22-30); Chloride 101 mmol/L (96-108); Glomerular Filtration Rate 92; Glucose 88 mg/dL (70-105)
[2021-12-01] MEDS ORDERED: SCOPOLAMINE 1 PATCH PATCH TOPICAL PRN (11:00)
[2021-12-01] MEDS ORDERED: IPRATROPIUM/ALBUTEROL 3 ML AMPUL.NEB NEB PRN ×2 (11:00→15:41)
[2021-12-01] MEDS ORDERED: ERTAPENEM 1 GM VIAL IM SCH (11:30)
[2021-12-01] MEDS ORDERED: ERTAPENEM 1 GM in 0.9 % SODIUM CHLORIDE 50 ML IV ONE (13:26)
[2021-12-01] MEDS ORDERED: PROPOFOL 200 MG/20 ML VIAL IV ONE (13:28)
[2021-12-01] MEDS ORDERED: MIDAZOLAM 2 MG/2 ML VIAL ONE (13:28)
[2021-12-01] MEDS ORDERED: DEXAMETHASONE 10 MG/ML VIAL ONE (13:28)
[2021-12-01] MEDS ORDERED: GLYCOPYRROLATE 0.2 MG/ML VIAL IV ONE (13:28)
[2021-12-01] MEDS ORDERED: MAGNESIUM SULFATE 2 GM/50 ML BAG IV ONE (13:28)
[2021-12-01] MEDS ORDERED: SUGAMMADEX SODIUM 200 MG/2 ML VIAL IV ONE (13:28)
[2021-12-01] MEDS ORDERED: ONDANSETRON 4 MG/2 ML VIAL ONE (13:28)
[2021-12-01] MEDS ORDERED: ROCURONIUM 10 MG/ML ML IV ONE (13:28)
[2021-12-01] MEDS ORDERED: fentaNYL 250 MCG/5 ML VIAL IV ONE (13:28)
[2021-12-01] MEDS ORDERED: LIDOCAINE HCL/PF 100 MG/5 ML SYRINGE IV ONE (13:28)
[2021-12-01] MEDS ORDERED: ePHEDrine 50 MG/5 ML SYRINGE (ANEST) IV ONE (13:28)
[2021-12-01] MEDS ORDERED: KETAMINE 50 MG/ML Syringe (ANEST) IV ONE (13:28)
[2021-12-01] MEDS ORDERED: diphenhydrAMINE 50 MG/ML VIAL IV PRN (15:41)
[2021-12-01] MEDS ORDERED: NALOXONE HCL 0.4 MG/ML VIAL IV PRN (15:41)
[2021-12-01] MEDS ORDERED: ONDANSETRON 4 MG/2 ML VIAL IV PRN (15:41)
[2021-12-01] MEDS ORDERED: ACETAMINOPHEN 1,000 MG/100 ML BAG IV ONE (15:41)
[2021-12-01] MEDS ORDERED: KETOROLAC 30 MG/ML VIAL IV PRN (15:41)
[2021-12-01] MEDS ORDERED: PROMETHAZINE 25 MG/ML VIAL IV PRN (15:41)
[2021-12-01] MEDS ORDERED: LACTATED RINGERS 250 ML IV PRN (15:41)
[2021-12-01] MEDS ORDERED: MEPERIDINE 25 MG/ML VIAL IV PRN (15:41)
[2021-12-01] MEDS ORDERED: LACTATED RINGERS 1,000 ML IV SCH (15:45)
--- NOTE | 2021-12-01 16:20 | Operative Note ---
Brief Operative Note Date of procedure: 12/01/21 Pre-op diagnosis: Colocolonic intussusception, sigmoid mass Post-op diagnosis: same Procedure: Robotic assisted sigmoid colectomy Grafts/Implants: No Anesthesia: GETA Findings: Mid sigmoid mass consistent with known colonic mass Complications: none Surgeon: Toan Garduno Estimated blood loss (cc): 50 Specimens Removed/Pathology: other (Sigmoid colon, anastomotic donuts) Condition: stable Disposition: PACU Operative Note Operative Note: After all risk benefits and alternatives to the procedure were discussed with the patient at length she verbalized understanding and desire to continue with the procedure. Patient was taken main operating placed upon the operative table. General anesthesia was induced over endotracheal tube. Patient's prepped and draped in standard sterile surgical fashion. After being placed in a modified lithotomy position. Surgical timeout was taken to verify patient and procedure being performed. Postanesthesia induction prior to prepping a OG tube and a Cohen catheter was placed. 1% lidocaine half percent Marcaine was used for local anesthesia throughout the case. Attention was then turned to the right lower quadrant where a 3 cm incision was made carried down through skin subcutaneous tissue. The fascia was opened horizontally and the rectus muscle was split and the peritoneum was entered under direct vision. A wound protector was placed into the abdominal cavity with the cap on top and the abdominal cavity was insufflated with carbon dioxide. Visual inspection revealed no injuries. To 8 mm left upper quadrant trochars and a supraumbilical 8 mm trochars were then placed under direct vision. Patient was placed in a headdown position and abdominal expiration identified the mass at the mid sigmoid position. There was no evidence of intussusception at this time. The da Gavino robot was docked in the standard fashion. Attention was first turned to the blood supply to the sigmoid colon the peritoneum was taken down and the retroperitoneal space was entered and the inferior mesenteric artery and vein were identified. These were transected using vessel sealing device and the retroperitoneal space was dissected with blunt and electrocautery dissection. The mass was identified and transecting the sigmoid at the rectosigmoid junction allowed adequate distal margins therefore at the distal sigmoid colon was cleaned of mesentery and transected with a robotic endostapler without difficulty. The lateral attachments were then taken down to allow full mobilization of the sigmoid colon my proximal transection site was identified greater than 5 cm from the colonic mass. The mesentery was taken down to this point and then firefly cholangiography was used to determine transection point. The colon was then transected with a robotic stapler and the remainder of the lateral attachments and mesentery was taken down with vessel sealing device. The specimen was then placed into the right lower quadrant the lateral attachments along the descending colon and the remainder of the sigmoid colon were then taken down and the proximal sigmoid colon fell into the pelvis without difficulty. EEA sizers were then used to size the rectum she dilated to 33 cm without difficulty therefore choice was made to use a 31 EEA stapler. The anvil of the EEA stapler was placed through the right lower quadrant site, the staple line on the sigmoid colon was removed with EndoShears, this portion was removed from the abdominal cavity and passed off with the specimen. The 31 EEA anvil was then placed into the end of the colon it was sutured in place with a 3-0 PDS pursestring suture. It fit without difficulty. The EEA stapler was then introduced through the rectum it was brought out just below the staple line on the patient's right-hand side of the stapler to ensure a single crossing staple line. The anvil was attached to the stapler and a standard EEA stapled anastomosis was performed. The anastomotic donuts were inspected and 2 complete anastomotic donuts were identified. These were passed off for surgical pathology. A colonoscope was then used to inspect the anastomosis. The anastomosis was airtight and fully patent and hemostatic under direct visualization. The air was suctioned free from the rectum and attention was turned back to the abdominal cavity. The irrigation used for the leak test was suctioned free from the abdominal cavity. The colon was inspected and laid straight, without tension in the pelvis and the anastomosis was grossly intact. The entire abdomen was inspected for hemostasis, the abdomen was hemostatic. Therefore the da Gavino robot was undocked the specimen was grasped through the right lower quadrant incision brought out through the wound protector device and passed off the field for surgical pathology. The CO2 and trochars were removed under direct vision. Trocar sites were inspected for hemostasis. The right lower quadrant fascial defect was closed with a running looped 0 PDS suture. The wound was copiously irrigated and then closed with interrupted 4-0 Monocryl sutures. The remainder of the trocar sites were closed with 4-0 Monocryl sutures and skin glue dressings were applied to each of the incisions. Patient was then awakened from anesthesia transferred postanesthesia care unit awake alert in good condition.
[2021-12-01] MEDS: fentaNYL 100 MCG/2 ML VIAL IV PRN ×4 (16:44→16:57)
[2021-12-01] MEDS: ACETAMINOPHEN 325 MG TABLET PO PRN (22:12)
[2021-12-01] MEDS: oxyCODONE HCL 5 MG TABLET PO PRN (23:20)
[2021-12-02] MEDS: HYDROmorphone 0.5 MG/0.5 ML SYRINGE IV PRN ×7 (00:56→22:59)
[2021-12-02] MEDS: oxyCODONE HCL 5 MG TABLET PO PRN ×5 (03:00→21:03)
[2021-12-02] MEDS: ACETAMINOPHEN 325 MG TABLET PO PRN ×3 (03:47→19:16)
[2021-12-02] MEDS: ONDANSETRON 4 MG/2 ML VIAL IV PRN (05:03)
--- NOTE | 2021-12-02 08:35 | General Surgery Progress Note ---
SUBJECTIVE Subjective Patient information: Note initiated : 12/02/21 at 8:33 am Service Date, if different from initiated Date: [] Patient: Jeanine Tillman 41 y/o F admitted on 11/30/21 for abd. pain. Chief Complaint: [] Interval history: Postop day #1 status post robotic assisted sigmoid colectomy for colon mass. Patient is doing well overnight, ambulated last night. Does not have return of bowel function yet. He has no fevers chills nausea or vomiting. Is tolerating clear liquid diet. Constitutional Vitals: Vital Signs Temp Pulse Resp BP Pulse Ox O2 Del Method O2 Flow Rate 98.6 F 72 16 96/60 92 2 12/02/21 07:51 12/02/21 07:51 12/02/21 07:51 12/02/21 07:51 12/02/21 07:51 12/02/21 07:51 12/01/21 23:43 Period Temp Pulse Resp BP Sys/Lizarraga Pulse Ox O2 Del Method O2 Flow Rate Last 24 Hr 97.1 F-98.9 F 57-98 14-21 90-131/52-82 89-100 Nasal Cannula- Simple Mask 1-6 Intake and Output 12/01/21 12/02/21 12/02/21 21:59 05:59 13:59 Intake Total 2150 787 Output Total 225 925 Balance 1925 -138 Weight 176 lb 6.4 oz Intake & Output: Intake & Output 12/01/21 12/02/21 12/02/21 21:59 05:59 13:59 Intake Total 2150 787 Output Total 225 925 Balance 1925 -138 Weight 176 lb 6.4 oz Intake: IV 150 INVanz 1 GM In Sodium Chloride 50 0.9% 50 ml @ 100 mls/hr IV ONCE ONE Rx#:[id number] Oral 787 IV - Manual Only 1999 Output: Urine Catheter Amount 175 925 Estimated Blood Loss 50 Other: Urine Appearance Clear Clear Uretheral (Cohen) Clear Urine Color Yellow Yellow Pale Pale Uretheral (Cohen) Yellow Pale Urine Odor Normal Normal General appearance: cooperative and no acute distress GI/Abdominal GI/Abdominal exam: Present soft and tenderness; Absent distended Additional comments: Incisions are clean dry and intact A/P Assessment and plan (1) Colonic mass: Plan: Postop day 1 status post robotic assisted sigmoid colectomy. Patient is progressing as expected, will DC Cohen this morning. Continue with clear liquid diet until return of bowel functions. Status: Acute Time Spent With Patient Time: Total time spent is greater than 50% in coordination of care (as documented) at patient's floor/unit and/or counseling patient:
[2021-12-03] MEDS: HYDROmorphone 0.5 MG/0.5 ML SYRINGE IV PRN ×7 (01:15→23:20)
[2021-12-03] MEDS: oxyCODONE HCL 5 MG TABLET PO PRN ×5 (01:57→21:09)
--- NOTE | 2021-12-03 07:42 | EKG ---
[facility] Test Date: 2021-11-30 Pat Name: Jeanine Tillman Department: ED Room: Gender: Female Executive Personal Assistant: SB : 1980 Requested By: Rosalino Gates Order Number: [id number] Reading MD: Vinicio Boyle M.D. Measurements Intervals [place] Rate: 80 P: 67 GA: 176 QRS: 45 QRSD: 82 T: 54 QT: 376 QTc: 434 Interpretive Statements Sinus rhythm Electronically Signed On 12-03-2021 7:41:49 PDT by Vinicio Boyle M.D. /store/[email or web address]/[id number]
[2021-12-03 08:51] LABS: Basophils # (Auto) 0.01 K/mcL (0.00-0.30); Basophils % (Auto) 0.1 % (0.0-2.0); Eosinophils # (Auto) 0.08 K/mcL (0.00-0.70); Eosinophils % (Auto) 0.8 % (0.0-7.0); Hematocrit 35.7 % (34.1-44.9); Hemoglobin 11.5 g/dL (11.2-15.7); Lymphocytes # (Auto) 1.29 K/mcL (1.50-4.80); Lymphocytes % (Auto) 12.7 % (15.5-49.0); Mean Cell Volume 93.2 fL (80.0-100.0); Mean Corpuscular HGB Conc 32.2 g/dL (31.0-36.0); Mean Platelet Volume 11.2 fL (7.4-10.4); Monocytes # (Auto) 1.25 K/mcL (0.10-0.90); Monocytes % (Auto) 12.3 % (1.0-12.0); Neutrophils % (Auto) 73.7 % (38.0-78.0); Platelet Count 250 K/mcL (140-440); RBC 3.83 M/mcL (3.59-5.38); Red Cell Distribution Width 13.5 % (11.5-14.5); WBC 10.2 K/mcL (4.5-11.0)
[2021-12-03 08:57] LABS: Blood Urea Nitrogen 7 mg/dL (6-20); Carbon Dioxide 24 mmol/L (22-30); Chloride 103 mmol/L (96-108); Glomerular Filtration Rate 109; Glucose 90 mg/dL (70-105)
--- NOTE | 2021-12-03 10:51 | General Surgery Progress Note ---
SUBJECTIVE Subjective Patient information: Note initiated : 12/03/21 at 10:49 am Service Date, if different from initiated Date: [] Patient: Jeanine Tillman 41 y/o F admitted on 11/30/21 for abd. pain. Chief Complaint: [] Interval history: Postop day #2 status post robotic assisted sigmoid colectomy. Patient is ambulatory, has minimal pain. She is had no flatus or bowel movement at this time. She is tolerating clear liquid diet with no nausea or emesis. Constitutional Vitals: Vital Signs Temp Pulse Resp BP Pulse Ox O2 Del Method O2 Flow Rate 99.3 F H 77 17 105/66 92 2 12/03/21 07:24 12/03/21 07:24 12/03/21 07:24 12/03/21 07:24 12/03/21 07:24 12/03/21 07:24 12/01/21 23:43 Period Temp Pulse Resp BP Sys/Lizarraga Pulse Ox O2 Del Method O2 Flow Rate Last 24 Hr 97.9 F-99.3 F 74-98 14-20 94-118/59-78 91-94 Room Air-Room Air Intake and Output 12/02/21 12/03/21 12/03/21 21:59 05:59 13:59 Intake Total 920 240 Output Total 700 Balance 220 240 Weight 179 lb 3.2 oz Intake & Output: Intake & Output 12/02/21 12/03/21 12/03/21 21:59 05:59 13:59 Intake Total 920 240 Output Total 700 Balance 220 240 Weight 179 lb 3.2 oz Intake: Oral 920 240 Output: Void Amount 700 Other: Urine Appearance Clear Urine Color Yellow # Voids 2 General appearance: cooperative and no acute distress GI/Abdominal GI/Abdominal exam: Present soft; Absent distended, rebound or tenderness Additional comments: Incisions are clean dry and intact A/P Assessment and plan (1) Colonic mass: Plan: Postop day #2 status post sigmoid colectomy. Awaiting return of bowel function. Continue to encourage ambulation, advance diet to regular. Status: Acute Time Spent With Patient Time: Total time spent is greater than 50% in coordination of care (as documented) at patient's floor/unit and/or counseling patient:
[2021-12-03] MEDS ORDERED: MAGNESIUM HYDROXIDE 30 ML ORAL.SUSP PO PRN (20:08)
[2021-12-03] MEDS: DOCUSATE SODIUM 100 MG CAPSULE PO SCH (21:09)
[2021-12-03] MEDS: SENNOSIDES 1 TABLET PO SCH (21:09)
[2021-12-03] MEDS: ACETAMINOPHEN 325 MG TABLET PO PRN (23:27)
[2021-12-04] MEDS: HYDROmorphone 0.5 MG/0.5 ML SYRINGE IV PRN ×5 (04:04→22:20)
[2021-12-04] MEDS: oxyCODONE HCL 5 MG TABLET PO PRN ×3 (05:58→15:54)
[2021-12-04] MEDS: DOCUSATE SODIUM 100 MG CAPSULE PO SCH ×2 (08:15→21:48)
[2021-12-04] MEDS: ACETAMINOPHEN 325 MG TABLET PO PRN ×2 (09:36→19:25)
--- NOTE | 2021-12-04 09:42 | General Surgery Progress Note ---
SUBJECTIVE Subjective Patient information: Note initiated : 12/04/21 at 9:39 am Service Date, if different from initiated Date: [] Patient: Jeanine Tillman 41 y/o F admitted on 11/30/21 for abd. pain. Chief Complaint: [] Principal diagnosis: Postop day #3 status post robotic assisted sigmoid colectomy for colonic ma Interval history: Overnight took less pain medication, has been ambulatory and had small amount of flatus this morning. No nausea, tolerating minimal amount of regular diet. Constitutional Vitals: Vital Signs Temp Pulse Resp BP Pulse Ox O2 Del Method O2 Flow Rate 98.5 F 83 16 113/75 91 2 12/04/21 08:13 12/04/21 08:13 12/04/21 08:13 12/04/21 08:13 12/04/21 08:13 12/04/21 08:13 12/01/21 23:43 Period Temp Pulse Resp BP Sys/Lizarraga Pulse Ox O2 Del Method O2 Flow Rate Last 24 Hr 97.8 F-100.1 F 74-90 16-20 112-135/69-83 91-93 Room Air-Room Air Intake and Output 12/03/21 12/04/21 12/04/21 21:59 05:59 13:59 Intake Total 1440 750 Balance 1440 750 Weight 177 lb 4.8 oz Intake & Output: Intake & Output 12/03/21 12/04/21 12/04/21 21:59 05:59 13:59 Intake Total 1440 750 Balance 1440 750 Weight 177 lb 4.8 oz Intake: Oral 1440 750 Other: Meal Lunch Percent of Meal Consumed 100% Feeding Ability Independent # Voids 3 General appearance: cooperative and no acute distress GI/Abdominal GI/Abdominal exam: Present soft and tenderness (Decreased appropriate tenderness); Absent distended Additional comments: Incisions are clean dry and intact A/P Assessment and plan (1) Colonic mass: Plan: Progressing as expected. Continue ambulation, continue to wean narcotics. Awaiting full return of bowel function. Status: Acute Time Spent With Patient Time: Total time spent is greater than 50% in coordination of care (as documented) at patient's floor/unit and/or counseling patient:
[2021-12-04] MEDS: ONDANSETRON 4 MG/2 ML VIAL IV PRN (15:51)
[2021-12-04] MEDS: 0.9 % SODIUM CHLORIDE 10 ML SYRINGE IV SCH ×2 (19:48→22:21)
[2021-12-04] MEDS: SENNOSIDES 1 TABLET PO SCH (21:48)
[2021-12-05] MEDS: 0.9 % SODIUM CHLORIDE 10 ML SYRINGE IV SCH ×4 (02:28→20:00)
[2021-12-05] MEDS: HYDROmorphone 0.5 MG/0.5 ML SYRINGE IV PRN ×2 (02:29→19:57)
[2021-12-05] MEDS: ONDANSETRON 4 MG/2 ML VIAL IV PRN ×4 (04:58→23:36)
[2021-12-05] MEDS ORDERED: SCOPOLAMINE 1 PATCH PATCH TOPICAL SCH (08:30)
[2021-12-05] MEDS: oxyCODONE HCL 5 MG TABLET PO PRN ×2 (08:38→23:41)
[2021-12-05] MEDS: DOCUSATE SODIUM 100 MG CAPSULE PO SCH ×2 (08:47→23:41)
--- NOTE | 2021-12-05 09:23 | General Surgery Progress Note ---
SUBJECTIVE Subjective Patient information: Note initiated : 12/05/21 at 9:21 am Service Date, if different from initiated Date: [] Patient: Jeanine Tillman 41 y/o F admitted on 11/30/21 for abd. pain. Chief Complaint: [] Principal diagnosis: POD #4 status post robotic assisted sigmoid colectomy for colonic mass Interval history: Patient continues to be ambulatory overnight, passed a small amount of flatus but no bowel movement at this time. No fevers chills nausea or vomiting. Patient has decreased appetite and is not eating a lot. Constitutional Vitals: Vital Signs Temp Pulse Resp BP Pulse Ox O2 Del Method O2 Flow Rate 97.9 F 74 16 112/77 94 2 12/05/21 06:28 12/05/21 06:28 12/05/21 06:28 12/05/21 06:28 12/05/21 06:28 12/05/21 06:28 12/01/21 23:43 Period Temp Pulse Resp BP Sys/Lizarraga Pulse Ox O2 Del Method O2 Flow Rate Last 24 Hr 97.7 F-99.1 F 64-77 16-16 103-131/61-80 91-96 Room Air-Room Air Intake and Output 12/04/21 12/05/21 12/05/21 21:59 05:59 13:59 Intake Total 700 360 Output Total 700 Balance 700 -340 Weight 142 lb 8 oz Intake & Output: Intake & Output 12/04/21 12/05/21 12/05/21 21:59 05:59 13:59 Intake Total 700 360 Output Total 700 Balance 700 -340 Weight 142 lb 8 oz Intake: Oral 360 GI Tube Flush 700 Output: Void Amount 700 Other: Urine Appearance Clear Clear Urine Color Bright Yellow Bright Yellow Urine Odor Normal Normal # Voids 3 1 General appearance: cooperative and no acute distress GI/Abdominal GI/Abdominal exam: Present normal bowel sounds and soft; Absent distended or tenderness Additional comments: Incisions are clean dry and intact A/P Assessment and plan (1) Colonic mass: Plan: Postop day #4 status post sigmoid colectomy. Awaiting return of bowel function. Continue ambulation, will give gum to chew, will start giving milk of magnesia as patient was on chronic laxatives prior to admission. Status: Acute Time Spent With Patient Time: Total time spent is greater than 50% in coordination of care (as documented) at patient's floor/unit and/or counseling patient:
[2021-12-05] MEDS ORDERED: MAGNESIUM HYDROXIDE 30 ML ORAL.SUSP PO SCH (12:00)
[2021-12-05] MEDS: NYSTATIN 500,000 UNITS/5 ML ORAL.SUSP SSP SCH ×2 (17:20→23:40)
[2021-12-05] MEDS: SENNOSIDES 1 TABLET PO SCH (23:40)
[2021-12-06] MEDS: NYSTATIN 500,000 UNITS/5 ML ORAL.SUSP SSP SCH (05:18)
[2021-12-06] MEDS: ACETAMINOPHEN 325 MG TABLET PO PRN (05:18)
[2021-12-06] MEDS: HYDROmorphone 0.5 MG/0.5 ML SYRINGE IV PRN (05:21)
[2021-12-06] MEDS: 0.9 % SODIUM CHLORIDE 10 ML SYRINGE IV SCH (05:21)
[2021-12-06] MEDS: ONDANSETRON 4 MG/2 ML VIAL IV PRN (05:28)
[2021-12-06] MEDS: oxyCODONE HCL 5 MG TABLET PO PRN (08:55)
[2021-12-06] MEDS: DOCUSATE SODIUM 100 MG CAPSULE PO SCH (08:55)
--- NOTE | 2021-12-06 09:59 | Discharge Summary ---
Discharge Provider Provider IMPORTANT FOLLOW-UP INFORMATION FOR PCP: Patient information: Note initiated : 12/06/21 at 9:58 am Service Date, if different from initiated Date: [] Patient: Jeanine Tillman 41 y/o F admitted on 11/30/21 for abd. pain. Chief Complaint: [] Date of admission: 11/30/21 12:03 Discharge date: 12/06/21 Primary care physician: PCP No Consults: 11/30/21 09:43 Consult to Physician [CONS] Stat Comment: Consulting Provider: Toan Garduon Reason For Exam: Physician to Consult COURSE Hospital Course Hospital course: Patient presented with colocolonic intussusception from a sigmoid mass. She was taken the operating room on hospital day #1 for robotic assisted sigmoid colectomy. Postop day #5 she has had return of bowel function, is ambulatory, tolerating regular diet. Discharge diagnosis: Status post sigmoid collection for colonic mass Time Spent with Patient Time attestation: Total time spent providing and/or coordinating discharge services: Time spent: Less than 30 minutes Physical Examination Vital Signs Vital signs: Temp Pulse Resp BP Pulse Ox O2 Del Method O2 Flow Rate 97.7 F 59 L 16 94/59 94 2 12/06/21 07:34 12/06/21 07:34 12/06/21 07:34 12/06/21 07:34 12/06/21 07:34 12/06/21 07:34 12/01/21 23:43 Discharge Plan Patient/Caregiver Discharge Instructions Activity: increase activity as tolerated Diet: Regular Diet Activity Restrictions/Additional Instructions: Shower as normal. Follow-up with me in 1 week. Activity as tolerated. Prescriptions: New ibuprofen 800 mg tablet 800 mg PO TID PRN (Reason: pain) Qty: 90 0RF acetaminophen [Tylenol 8 Hour] 650 mg tablet extended release 650 mg PO Q8H PRN (Reason: pain) Qty: 90 0RF oxycodone 5 mg tablet 5 mg PO Q6H PRN (Reason: pain) Qty: 5 0RF Follow Up Plan Follow up with: Toan Garduno MD [Physician] - No,PCP [Primary Care Provider] - Patient Disposition: Home, Self-Care Discharge Orders: Discharge Order (Routine); Ordered 12/06/21 Ordered By: Toan Garduno Pending Pending Pending: Resuscitation Status Resuscitate (Full Code) Diet Regular Diet Start Sun Sep 4 1356 Acetaminophen (Acetaminophen 325 Mg Tablet) 650 mg PO Q6HP PRN; Protocol PRN Reason: Per Pain Protocol/Fever > 101 Last Admin: 12/06/21 05:18 Dose: 650 mg Documented By: Admin: 12/04/21 19:25 Dose: 650 mg Documented By: Admin: 12/04/21 09:36 Dose: 650 mg Documented By: Admin: 12/03/21 23:27 Dose: 650 mg Documented By: Admin: 12/02/21 19:16 Dose: 650 mg Documented By: Admin: 12/02/21 11:04 Dose: 650 mg Documented By: Admin: 12/02/21 03:47 Dose: 650 mg Documented By: Admin: 12/01/21 22:12 Dose: 650 mg Documented By: Admin: 11/30/21 20:49 Dose: 650 mg Documented By: CHARMAINE Docusate Sodium (Docusate Sodium 100 Mg Capsule) 100 mg PO BID [facility] Last Admin: 12/06/21 08:55 Dose: 100 mg Documented By: Admin: 12/05/21 23:41 Dose: 100 mg Documented By: Admin: 12/05/21 08:47 Dose: 100 mg Documented By: Admin: 12/04/21 21:48 Dose: 100 mg Documented By: Admin: 12/04/21 08:15 Dose: 100 mg Documented By: Admin: 12/03/21 21:09 Dose: 100 mg Documented By: KENDALL Hydromorphone HCl (Hydromorphone 0.5 Mg/0.5 Ml Syringe) 0.5 mg IV Q2HP PRN; Protocol PRN Reason: Per Pain Protocol Last Admin: 12/06/21 05:21 Dose: 0.5 mg Documented By: Admin: 12/05/21 19:57 Dose: 0.5 mg Documented By: Admin: 12/05/21 02:29 Dose: 0.5 mg Documented By: Admin: 12/04/21 22:20 Dose: 0.5 mg Documented By: Admin: 12/04/21 19:49 Dose: 0.5 mg Documented By: UXIta Admin: 12/04/21 17:59 Dose: 0.5 mg Documented By: Admin: 12/04/21 12:18 Dose: 0.5 mg Documented By: Admin: 12/04/21 04:04 Dose: 0.5 mg Documented By: Admin: 12/03/21 23:20 Dose: 0.5 mg Documented By: Admin: 12/03/21 19:22 Dose: 0.5 mg Documented By: Admin: 12/03/21 15:09 Dose: 0.5 mg Documented By: Admin: 12/03/21 11:34 Dose: 0.5 mg Documented By: Admin: 12/03/21 07:03 Dose: 0.5 mg Documented By: Admin: 12/03/21 04:13 Dose: 0.5 mg Documented By: Admin: 12/03/21 01:15 Dose: 0.5 mg Documented By: Admin: 12/02/21 22:59 Dose: 0.5 mg Documented By: Admin: 12/02/21 19:42 Dose: 0.5 mg Documented By: Admin: 12/02/21 17:46 Dose: 0.5 mg Documented By: Admin: 12/02/21 14:13 Dose: 0.5 mg Documented By: Admin: 12/02/21 09:48 Dose: 0.5 mg Documented By: Admin: 12/02/21 05:03 Dose: 0.5 mg Documented By: Admin: 12/02/21 00:56 Dose: 0.5 mg Documented By: Admin: 12/01/21 22:12 Dose: 0.5 mg Documented By: Admin: 12/01/21 20:18 Dose: 0.5 mg Documented By: Admin: 12/01/21 18:05 Dose: 0.5 mg Documented By: Admin: 12/01/21 09:43 Dose: 0.5 mg Documented By: Admin: 12/01/21 07:12 Dose: 0.5 mg Documented By: Admin: 12/01/21 02:02 Dose: 0.5 mg Documented By: Admin: 12/01/21 00:15 Dose: 0.5 mg Documented By: Admin: 11/30/21 20:49 Dose: 0.5 mg Documented By: Admin: 11/30/21 17:51 Dose: 0.5 mg Documented By: LINDSEY Nystatin (Nystatin 500,000 Units/5 Ml Oral.Susp) 500,000 units SSP Q6 YURI Last Admin: 12/06/21 05:18 Dose: 500,000 units Documented By: Admin: 12/05/21 23:40 Dose: 500,000 units Documented By: Admin: 12/05/21 17:20 Dose: 500,000 units Documented By: GLENDY Ondansetron HCl (Ondansetron 4 Mg/2 Ml Vial) 4 mg IV Q6HP PRN PRN Reason: Nausea And Vomiting Last Admin: 12/06/21 05:28 Dose: 4 mg Documented By: Admin: 12/05/21 23:36 Dose: 4 mg Documented By: Admin: 12/05/21 18:06 Dose: 4 mg Documented By: Admin: 12/05/21 13:44 Dose: 4 mg Documented By: Admin: 12/05/21 04:58 Dose: 4 mg Documented By: Admin: 12/04/21 15:51 Dose: 4 mg Documented By: Admin: 12/02/21 05:03 Dose: 4 mg Documented By: Admin: 12/01/21 23:20 Dose: 4 mg Documented By: Admin: 12/01/21 07:11 Dose: 4 mg Documented By: [email or web address] Admin: 12/01/21 00:20 Dose: 4 mg Documented By: Admin: 11/30/21 17:53 Dose: 4 mg Documented By: LINDSEY Oxycodone HCl (Oxycodone Hcl 5 Mg Tablet) 5 mg PO Q4HP PRN; Protocol PRN Reason: Per Pain Protocol Last Admin: 12/06/21 08:55 Dose: 5 mg Documented By: Admin: 12/05/21 23:41 Dose: 5 mg Documented By: Admin: 12/05/21 08:38 Dose: 5 mg Documented By: Admin: 12/04/21 15:54 Dose: 5 mg Documented By: Admin: 12/04/21 10:35 Dose: 5 mg Documented By: Admin: 12/04/21 05:58 Dose: 5 mg Documented By: Admin: 12/03/21 21:09 Dose: 5 mg Documented By: Admin: 12/03/21 14:09 Dose: 5 mg Documented By: Admin: 12/03/21 09:55 Dose: 5 mg Documented By: Admin: 12/03/21 05:54 Dose: 5 mg Documented By: Admin: 12/03/21 01:57 Dose: 5 mg Documented By: Admin: 12/02/21 21:03 Dose: 5 mg Documented By: Admin: 12/02/21 17:08 Dose: 5 mg Documented By: Admin: 12/02/21 12:47 Dose: 5 mg Documented By: Admin: 12/02/21 07:50 Dose: 5 mg Documented By: Admin: 12/02/21 03:00 Dose: 5 mg Documented By: Admin: 12/01/21 23:20 Dose: 5 mg Documented By: CHARMAINE Scopolamine (Scopolamine 1 Patch Patch) 1 patch TOPICAL Q72H [facility] Last Admin: 12/05/21 08:39 Dose: 1 patch Documented By: GLENDY Senna (Sennosides 1 Tablet) 2 tab PO HS [facility] Last Admin: 12/05/21 23:40 Dose: 2 tab Documented By: Admin: 12/04/21 21:48 Dose: 2 tab Documented By: Admin: 12/03/21 21:09 Dose: 2 tab Documented By: KENDALL Sodium Chloride (0.9 % Sodium Chloride 10 Ml Syringe) 10 ml IV Q8 [facility] Last Admin: 12/06/21 05:21 Dose: 10 ml Documented By: Admin: 12/05/21 20:00 Dose: 10 ml Documented By: Admin: 12/05/21 13:07 Dose: 10 ml Documented By: Admin: 12/05/21 04:58 Dose: 10 ml Documented By: OBIE Shift Summary 12/06/21 04:54 Shift Summary by Skylar Elias Registration Status: IP Date of Surgery (if applicable): 12/01- Robotic Assisted Sigmoid Colectomy Pertinent Medical Dx/Issue(s): GERD Med management (antibiotics, diuretics, BP): Dilaudid IV, Oxycodone 5mg PO, Scope Patch, Zofran Nystatin swish/spit. Skin/Wound Care: 3 Abd lap sites secured with surgical glue and are C/D/I Vital Signs with Trends: VSS on RA Pain management (acute vs. chronic): Oxycodone 5mg PO given x1 for abdomen pain; Scope patch replaced on 12/05 (days) for nausea. Zofran 4mg IV; Moderate emesis x1 on this shift Lab/Rad (abnormals, trends): Calcium: 8.0 Neuro/Mental Status: A/O x4, uses call light appropriately Urinary Elimination Device: Up independently to BR Urinary output greater than 30mL/hr? Yes Date of last BM: 12/05, No BM on this shift Lines/Tubes: 20g IV to R hand SL Activity: Up ad cassidy in room Additional info: aware of pt's tongue having a white, patchy coating on it and the inside of her mouth was red and tender. Pt has started Nystatin swish/spit for possible thrush. Discharge Plan (needs, disposition, etc): Home Initialized on 12/06/21 04:54 - END OF NOTE
== END 2021-12-06 11:10 | disposition home or self-care (01) | DRG 330 ==
LOC: ED 09:25 → MEDSUR 12:03
PROVIDERS: ADMIT Surgery; ATTEND Surgery